=== PATIENT | female | born 1955 | race African-American/Black ===

== ENCOUNTER 2017-12-04 00:09 | Emergency (ER) | payer MEDICAID ==
[~2017-12-04] VITALS: Ht 160 cm; Wt 55.0 kg
[2017-12-04] MEDS ORDERED: ACETAMINOPHEN 325MG TABLET PO ONE (03:45)
[2017-12-04 06:18] VITALS: BP 115/70
== END 2017-12-04 06:18 | disposition home or self-care (01) ==
LOC: ER 00:09
DX: S70.02XA Contusion of left hip, initial encounter (principal); F12.10 Cannabis abuse, uncomplicated; W19.XXXA Unspecified fall, initial encounter; Y93.89 Activity, other specified; Y99.8 Other external cause status; Y92.512 Supermarket, store or market as the place of occurrence of the external cause
CPT/HCPCS: 73522; 99284